=== PATIENT | female | born 1955 | race African-American/Black ===

== ENCOUNTER 2017-11-14 15:38 | Emergency (ER) | payer MEDICAID, OTHER ==
[~2017-11-14] VITALS: Ht 160 cm; Wt 53.0 kg
[~2017-11-14 15:38] MED LIST: ATOR10TA PO; Aspirin PO; CLOP75TA15 PO; LISI-652 PO; Metformin Hcl PO
[2017-11-14 15:44] VITALS: BP 180/80
== END 2017-11-14 22:50 | disposition left against medical advice (07) ==
LOC: ER 16:33
DX: Z53.21 Procedure and treatment not carried out due to patient leaving prior to being seen by health care provider (principal)